=== PATIENT | female | born 1990 | race African-American/Black ===

== ENCOUNTER 2016-04-28 14:40 | Emergency (ER) | payer OTHER ==
--- NOTE | ~2016-04-28 | CR72 ---
[facility] A Service of [facility] RADIOLOGY TEXT RESULTS PATIENT: PRECIOUS GARCIA LOCATION: [facility] : 86 UNIT #: [id number] AGE: [address]: Maria R Gill MD SEX: F ORDER DR: [id number] [facility] [address] [place], [place] [address] [id number] E MR#: [id number] Acc #: [id number] NAME: PRECIOUS GARCIA. : 1990 SEX: F STUDY DATE/TIME: 04/28/2016 15:12 UNIT: [facility] ROOM: STUDY DESCRIPTION: CR Chest Single View Portable Attending Physician: Maria R Gill M.D. Ordering Physician: Maria R Gill M.D. Primary Care Physician: Lis Fonseca M.D. MEDICAL IMAGING REPORT This report is preliminary unless electronic signature is present EXAM Portable chest, 04/28/16 INDICATIONS Chest pain, shortness of air started last night. COMPARISON 03/06/2016 FINDINGS A single AP portable view of the chest shows both lungs to be clear. The heart is normal in size. The mediastinal contour is normal. No significant bone abnormalities are seen. IMPRESSION Normal portable chest. Dictated by... Stefan Bowens Jr., M.D. THIS IS AN ELECTRONICALLY VERIFIED REPORT Stefan Bowens Jr., M.D. at 04/29/2016 5:50 AM KIEL/marito TD: 04/29/2016 02:19 JOB #: [id number] MEDICAL IMAGING REPORT Page 1 of 1 COPY
--- NOTE | ~2016-04-28 | EKG ---
PATIENT: PRECIOUS GARCIA UNIT #: [id number] Ventricular Rate: 78 BPM Atrial Rate: 78 BPM P-R Interval: 148 ms QRS Duration: 80 ms Q-T Interval: 372 ms QTC Calculation(Bezet): 424 ms P [place]: 14 degrees Calculated R [place]: 20 degrees Calculated T [place]: 5 degrees Diagnosis Line: Normal sinus rhythm Diagnosis Line: Normal ECG Diagnosis Line: When compared with ECG of 06-MAR-2016 09:03, Diagnosis Line: No significant change was found Diagnosis Line: Confirmed by KAILA VIRGEN MD ([id number]) on 04/30/2016 Diagnosis Line: 9:14:16 AM INTERPRETING MD: PARAM JOSEPH
[~2016-04-28 14:40] MED LIST: IRON PILL PO; NO MEDICATIONS; PRENATAL MULTIV1 TA1; PRENATAL VITAMI1 TA3 PO
[2016-04-28 15:17] LABS: BASOPHIL% 0.3 % (0-2.5); EOSINOPHIL# 0.1 X10e3 (0-0.7); EOSINOPHIL% 1.3 % (0.0-7.0); HEMATOCRIT 33.6 % (35.0-45.0); HEMOGLOBIN 11.2 gm/dL (12.0-16.0); LYMPHOCYTE# 2.7 X10e3 (1.0-3.5); LYMPHOCYTE% 30.9 % (17.0-45.0); MEAN CELL VOLUME 81.8 FL (83-96); MEAN CORPUSCULAR HEMOGLOBIN 27.2 PG (28-34); MEAN CORPUSCULAR HGB CONC 33.3 g/dL (30-36); MEAN PLATELET VOLUME 9.3 FL (6.5-11.5); MONOCYTE# 0.7 X10e3 (0-1.0); MONOCYTE% 8.2 % (3.0-12.0); NEUTROPHIL# 5.2 X10e3 (1.5-7.1); NEUTROPHIL% 59.3 % (40-75); PLATELET COUNT 171 X10e3 (140-420); RED BLOOD COUNT 4.11 X10e (3.90-5.30); RED CELL DISTRIBUTION WIDTH 14.4 % (11.0-15.5); WHITE BLOOD COUNT 8.8 X10e3 (4.0-10.5)
[2016-04-28 15:25] LABS: DIFF IND NO
[2016-04-28 15:38] LABS: POC - CKMB <1.0 ng/mL (0.0-7.9); POC - TROPONIN <0.05 ng/mL (<=0.05)
[2016-04-28 15:42] LABS: ALBUMIN SERUM 4.2 g/dL (3.5-5.0); ALKALINE PHOSPHATASE 87 U/L (32-92); ALT (SGPT) 13 U/L (10-40); AST (SGOT) 16 U/L (10-42); BILIRUBIN, DIRECT 0.1 mg/dL (0.0-0.2); BILIRUBIN,INDIRECT 0.3 mg/dL (0.0-0.9); BILIRUBIN,TOTAL 0.4 mg/dL (0.2-2.0); BLOOD UREA NITROGEN 11 mg/dL (9-23); BUN/CREATININE RATIO 15.71; CALCIUM SERUM 8.6 mg/dL (8.4-10.2); CARBON DIOXIDE 26 mmol/L (22-31); CHLORIDE 103 mmol/L (100-111); CREATININE SERUM 0.7 mg/dL (0.6-1.4); GLOM FILT RATE Estimated ABOVE60 mL/min (>60); GLUCOSE FASTING 108 mg/dL (70-110); POTASSIUM 4.1 mmol/L (3.5-5.1); PROTEIN TOTAL SERUM 7.5 g/dL (6.0-8.3); SODIUM 138 mmol/L (135-145)
== END 2016-04-28 17:30 | disposition home or self-care (01) ==
LOC: CED 14:40
PROVIDERS: Emergency Medicine
DX: R07.89 Other chest pain (principal); D64.9 Anemia, unspecified; Z98.890 Other specified postprocedural states
CPT/HCPCS: 36415; 71010; 80048; 80076; 82553; 84484; 84703; 85025; 85379; 93005; 99284

== ENCOUNTER 2016-04-30 11:56 | Emergency (ER) | payer OTHER ==
--- NOTE | ~2016-04-30 | EKG ---
PATIENT: PRECIOUS GARCIA UNIT #: [id number] Ventricular Rate: 70 BPM Atrial Rate: 70 BPM P-R Interval: 154 ms QRS Duration: 76 ms Q-T Interval: 390 ms QTC Calculation(Bezet): 421 ms P [place]: 13 degrees Calculated R [place]: 48 degrees Calculated T [place]: 10 degrees Diagnosis Line: Normal sinus rhythm with sinus arrhythmia Diagnosis Line: Normal ECG Diagnosis Line: When compared with ECG of 28-APR-2016 14:33, Diagnosis Line: No significant change was found Diagnosis Line: Confirmed by KAILA VIRGEN MD ([id number]) on 05/01/2016 Diagnosis Line: 9:36:25 AM INTERPRETING MD: PARAM JOSEPH
[2016-04-30 12:29] LABS: INFLUENZA A NEG (NEG); INFLUENZA B NEG (NEG)
== END 2016-04-30 12:42 | disposition home or self-care (01) ==
LOC: CED 11:56
PROVIDERS: Physician Assistant
DX: J02.0 Streptococcal pharyngitis (principal)
CPT/HCPCS: 87804; 87880; 93005; 96372; 99283; J0561